=== PATIENT | female | born 1960 ===

== ENCOUNTER 2022-10-03 14:04 | Emergency (ER) | payer OTHER ==
[~2022-10-03] VITALS: Ht 157.5 cm; Wt 65.9 kg
[2022-10-03 14:21] VITALS: BP 144/86; PULSE 63; RESP 18; TEMP 98.6
== END 2022-10-03 15:00 | disposition left against medical advice (07) ==
LOC: EMS 14:24
DX: R53.1 Weakness (principal); Z53.21 Procedure and treatment not carried out due to patient leaving prior to being seen by health care provider
CPT/HCPCS: 99281; Z7502